=== PATIENT | female | born 2000 | race Hispanic/Latino ===

== ENCOUNTER → 2024-04-19 | Outpatient (CLI) | payer OTHER ==
[~2024-04-19] MED LIST: PROHANCE 279.3MG/ML 15ML VIAL As Ordered ONE
== END ==
LOC: M RAD 15:57
PROVIDERS: ATTEND Family Medicine
DX: M79.661 Pain in right lower leg (principal)
CPT/HCPCS: A9576; C8914

== ENCOUNTER 2024-08-15 20:45 | Outpatient (CLI) | payer OTHER ==
[~2024-08-15] VITALS: Ht 157.5 cm; Wt 79.1 kg
[2024-08-15 20:58] VITALS: BP 129/80; O2SAT 98
[2024-08-15] MEDS ORDERED: HOME MED LIST COMPLETE! XX SCH (21:00)
[2024-08-15] MEDS ORDERED: PROB250C PO (21:08)
[2024-08-15] MEDS ORDERED: UNIS25TA3 PO (21:08)
[2024-08-15] MEDS ORDERED: PRENTAB9 PO (21:08)
[2024-08-15] MEDS: LR 1,000 ML IV ONE (21:39)
[2024-08-15] MEDS: ONDANSETRON 4MG 2ML VIAL IV ONE (21:39)
[2024-08-15 21:52] LABS: HEMATOCRIT 33.3 % (36.0-47.0); HEMOGLOBIN 11.2 g/dl (12.0-15.5); MEAN CORPUSCULAR HEMOGLOBIN 28.4 pg (27.0-33.0); MEAN CORPUSCULAR HGB CONC 33.6 g/dl (32.0-36.5); MEAN CORPUSCULAR VOLUME 84.3 fl (80.0-96.0); PLATELET COUNT, AUTOMATED 293 10^3/uL (150-450); RED BLOOD COUNT 3.95 10^6/uL (4.00-5.40)
[2024-08-15 22:13] VITALS: BP 116/65; O2SAT 100
[2024-08-15 22:16] LABS: LIPASE 31 U/L (12-53)
[2024-08-15 22:17] LABS: AMYLASE 105 U/L (30-118)
[2024-08-15 22:18] LABS: ALBUMIN 2.9 G/DL (3.2-5.2); ALKALINE PHOSPHATASE 69 U/L (35-104); ALT/SGPT 12 U/L (7.0-40); AST/SGOT 31 U/L (<34); BILIRUBIN,TOTAL 0.5 MG/DL (0.3-1.2); BLOOD UREA NITROGEN 7 MG/DL (9-23); CALCIUM LEVEL 8.7 MG/DL (8.5-10.1); CARBON DIOXIDE LEVEL 18 MMOL/L (20-31); CHLORIDE LEVEL 106 MMOL/L (98-107); CREATININE FOR GFR 0.44 MG/DL (0.55-1.30); GLOMERULAR FILTRATION RATE > 60.0 (>60); GLUCOSE, FASTING 90 MG/DL (60-100); POTASSIUM SERUM 3.7 MMOL/L (3.5-5.1); SODIUM LEVEL 136 MMOL/L (136-145); TOTAL PROTEIN 6.4 G/DL (5.7-8.2)
[2024-08-15] MEDS ORDERED: ONDA-282 PO (22:40)
== END 2024-08-15 20:50 | disposition home or self-care (01) ==
LOC: M LDO 20:45
PROVIDERS: ATTEND Obstetrics & Gynecology
DX: O21.8 Other vomiting complicating pregnancy (principal); O26.892 Other specified pregnancy related conditions, second trimester; R19.7 Diarrhea, unspecified; Z3A.20 20 weeks gestation of pregnancy
CPT/HCPCS: 59025; 80053; 82150; 83690; 85027; 96374; G0463; J2405

== ENCOUNTER 2024-08-17 09:33 | Outpatient (CLI) | payer OTHER ==
[~2024-08-17] VITALS: Ht 157.5 cm; Wt 79.7 kg
[~2024-08-17 09:33] MED LIST changes: +ONDA-282 PO; +PRENTAB9 PO; +PROB250C PO; -PROHANCE 279.3MG/ML 15ML VIAL As Ordered ONE; +UNIS25TA3 PO
[2024-08-17] MEDS ORDERED: ACET-907 PO (09:47)
[2024-08-17 09:50] VITALS: BP 107/62
[2024-08-17] MEDS ORDERED: HOME MED LIST COMPLETE! XX SCH (09:50)
[2024-08-17] MEDS ORDERED: LR 1,000 ML IV SCH (11:25)
[2024-08-17] MEDS: ONDANSETRON 4MG 2ML VIAL IV ONE (12:22)
[2024-08-17] MEDS: LACTATED RINGER'S 1000 ML IV STA (12:22)
[2024-08-17 14:05] LABS: APPEARANCE, URINE CLEAR (CLEAR); BACTERIA, URINE AUTO 2+ (NEGATIVE); BILIRUBIN, URINE AUTO NEGATIVE (NEGATIVE); BLOOD, URINE BLOOD NEGATIVE (NEGATIVE); COLOR, URINE YELLOW (YELLOW); GLUCOSE, URINE (UA) AUTO NEGATIVE (NEGATIVE); KETONE, URINE AUTO 2+ mg/dL (NEGATIVE); LEUKOCYTE ESTERASE, URINE AUTO NEGATIVE (NEGATIVE); MUCUS, URINE SMALL (NEGATIVE); NITRITE, URINE AUTO NEGATIVE (NEGATIVE); PROTEIN, URINE AUTO NEGATIVE (NEGATIVE); RBC, URINE AUTO 2 /HPF (0-3); SPECIFIC GRAVITY URINE AUTO 1.009 (1.002-1.035); SQUAMOUS EPITHELIAL CELL UR AU 0 /HPF (0-6); WBC, URINE AUTO 2 /HPF (0-3)
[2024-08-17] MEDS ORDERED: PROM25TA12 PO (15:21)
[2024-08-17] MEDS: PROMETHAZINE 25 MG TAB PO ONE (15:32)
== END 2024-08-17 15:30 | disposition home or self-care (01) ==
LOC: M LDO 09:33
PROVIDERS: ATTEND Obstetrics & Gynecology
DX: O21.8 Other vomiting complicating pregnancy (principal); O26.892 Other specified pregnancy related conditions, second trimester; R19.7 Diarrhea, unspecified; Z3A.20 20 weeks gestation of pregnancy
CPT/HCPCS: 81001; 96374; G0463; J2405

== ENCOUNTER 2024-12-21 22:51 | Outpatient (CLI) | payer OTHER ==
[~2024-12-21] VITALS: Ht 157.5 cm; Wt 85.6 kg
[~2024-12-21 22:51] MED LIST changes: +ACET-907 PO; +PROM25TA12 PO
[2024-12-21] MEDS ORDERED: HOME MED LIST COMPLETE! XX SCH (23:05)
[2024-12-21 23:12] VITALS: BP 142/67
== END 2024-12-22 00:01 | disposition home or self-care (01) ==
LOC: M LDO 22:51
PROVIDERS: ATTEND Advanced Practice Midwife
DX: O47.1 False labor at or after 37 completed weeks of gestation (principal); Z3A.38 38 weeks gestation of pregnancy
CPT/HCPCS: 59025; G0463

== ENCOUNTER 2024-12-25 12:48 | Inpatient (IN) | payer OTHER ==
[~2024-12-25] VITALS: Ht 157.5 cm; Wt 85.6 kg
[2024-12-25] VITALS (9 sets, daily range): BP systolic 131–155; BP diastolic 81–92
[2024-12-25] MEDS ORDERED: CARBOPROST TROMETHAMINE 250 MCG/ML AMP IM PRN (12:55)
[2024-12-25] MEDS ORDERED: TRANEXAMIC ACID INJection 1,000 MG in NS 100 ML IV PRN (12:55)
[2024-12-25] MEDS ORDERED: METHYLERGONOVINE MALEATE 0.2MG/ML 1ML VIAL IM PRN (12:55)
[2024-12-25] MEDS ORDERED: OXYTOCIN DRIP 30 UNITS in IV 1 EA IV PRN (12:55)
[2024-12-25] MEDS ORDERED: LIDOCAINE 1% MDV 20ML VIAL INFIL PRN (12:55)
[2024-12-25] MEDS ORDERED: HOME MED LIST COMPLETE! XX SCH (13:15)
[2024-12-25 13:52] LABS: HEMOGLOBIN 11.2 g/dl (12.0-15.5); MEAN CORPUSCULAR HEMOGLOBIN 26.6 pg (27.0-33.0); MEAN CORPUSCULAR HGB CONC 32.9 g/dl (32.0-36.5); MEAN CORPUSCULAR VOLUME 80.8 fl (80.0-96.0); PLATELET COUNT, AUTOMATED 276 10^3/uL (150-450); RED BLOOD COUNT 4.21 10^6/uL (4.00-5.40); WHITE BLOOD COUNT 10.7 10^3/uL (4.0-10.0)
[2024-12-25] MEDS: miSOPROStol 50MCG 1/2 TABLET SL PRN (14:39)
[2024-12-25 14:53] LABS: HIV 1&2 SCREEN NEGATIVE (NEGATIVE)
[2024-12-25 15:01] LABS: HEPATITIS C VIRUS ABY INDEX 0.04 INDEX (<0.8)
[2024-12-25] MEDS: miSOPROStol 25MCG 1/4 TABLET SL ONE (18:48)
[2024-12-25] MEDS: LR 1,000 ML IV SCH (20:55)
[2024-12-25] MEDS: BUTORPHANOL 2 MG/ML 1ML VIAL IV ONE (23:06)
[2024-12-25] MEDS: PROMETHAZINE 25MG/ML 1ML VIAL IV ONE (23:06)
[2024-12-25] MEDS ORDERED: miSOPROStol 25MCG 1/4 TABLET PV ONE (23:35)
[2024-12-26] VITALS (54 sets, daily range): BP systolic 78–157; BP diastolic 43–104; TEMP 98.4; O2SAT 96–97
[2024-12-26] MEDS ORDERED: ONDANSETRON 4MG 2ML VIAL IV PRN (01:40)
[2024-12-26] MEDS ORDERED: EPIDURAL/PCA KEYS XX PRN (01:40)
[2024-12-26] MEDS ORDERED: diphenhydrAMINE 50MG/ML VIAL IV PRN (01:40)
[2024-12-26] MEDS ORDERED: NALOXONE INJ 0.4MG/1ML VIAL IV PRN (01:40)
[2024-12-26] MEDS: LACTATED RINGER'S 1000 ML IV STA (01:43)
[2024-12-26] MEDS: FENTANYL/ROPIVACAINE/NACL BAG 100 ML EPIDURAL SCH (01:50)
[2024-12-26] MEDS ORDERED: miSOPROStol 25MCG 1/4 TABLET SL ONE (02:00)
[2024-12-26] MEDS: OXYTOCIN DRIP 30 UNITS in IV 1 EA IV SCH ×2 (03:32→22:42)
[2024-12-26] MEDS: ePHEDrine SULFATE 25 MG/5 ML(5MG/ML) SYRINGE IVP PRN (04:01)
[2024-12-26] MEDS: LR 500 ML IV PRN (06:20)
[2024-12-26] MEDS: diphenhydrAMINE 50MG/ML VIAL IV ONE (15:57)
[2024-12-26] MEDS: BICITRA 30ML SOLN UDC PO ONE (18:22)
[2024-12-26] MEDS: ceFAZolin SODIUM 2 GM in DEXTROSE 5% (D5W) ADV/MINI-BAG 50 ML IV ONE (18:22)
[2024-12-26] MEDS: AZITHROMYCIN INJ 500 MG, VIAL MATE ADAPTER 1 EACH in NS 250 ML IV ONE (18:22)
[2024-12-26] MEDS ORDERED: OXYTOCIN 30UNITS IN 0.9% NaCl 500ML IV BAG As Ordered ONE (18:55)
[2024-12-26] MEDS ORDERED: METOCLOPRAMIDE INJ 10MG/2ML VIAL As Ordered ONE (18:57)
[2024-12-26] MEDS ORDERED: ONDANSETRON 4MG 2ML VIAL As Ordered ONE (18:57)
[2024-12-26] MEDS ORDERED: PHENYLephrine 500MCG 5ML (100MCG/ML) SYRINGE As Ordered ONE (18:59)
[2024-12-26] MEDS ORDERED: TRANEXAMIC ACID 100 MG/ML 10ML VIAL As Ordered ONE (19:01)
[2024-12-26] MEDS ORDERED: dexmedeTOMIDine (4MCG/ML)200MCG/50ML BTL (PRECEDEX) As Ordered ONE (19:03)
[2024-12-26] MEDS ORDERED: MORPHINE PRES-FREE INJ 10 MG/10 ML VIAL As Ordered ONE (19:12)
[2024-12-26] MEDS ORDERED: KETOROLAC 30 MG/ML 1ML VIAL As Ordered ONE (19:14)
[2024-12-26] MEDS ORDERED: SIMETHICONE 80MG CHEW TAB PO PRN (19:35)
[2024-12-26] MEDS ORDERED: ANUSOL HC CREAM 30GM TOP PRN (19:35)
[2024-12-26] MEDS ORDERED: METHYLERGONOVINE MALEATE 0.2 MG TAB PO PRN (19:35)
[2024-12-26] MEDS ORDERED: MOM 30ML SUSPENSION UDC PO PRN (19:35)
[2024-12-26] MEDS ORDERED: PROMETHAZINE 25 MG TAB PO PRN (19:35)
[2024-12-26] MEDS ORDERED: SENNA 8.6 MG TAB (SENOKOT) PO PRN (19:35)
[2024-12-26] MEDS ORDERED: METOCLOPRAMIDE INJ 10MG/2ML VIAL IV PRN (19:35)
[2024-12-26] MEDS ORDERED: CALCIUM CARBONATE 500 MG CHEW U/D PO PRN (19:35)
[2024-12-26] MEDS ORDERED: oxyCODONE 5MG TAB PO PRN (19:35)
[2024-12-26] MEDS: LR 1,000 ML IV SCH (21:32)
[2024-12-26] MEDS: ACETAMINOPHEN 500 MG TAB PO PRN (22:19)
[2024-12-27] VITALS: BP 141/86; O2SAT 98
[2024-12-27 02:00] VITALS: BP 103/57; O2SAT 100
[2024-12-27] MEDS: KETOROLAC 30 MG/ML 1ML VIAL IV SCH (02:34)
[2024-12-27 06:00] VITALS: BP 121/61; O2SAT 98
[2024-12-27] MEDS: ACETAMINOPHEN 325 MG TAB PO PRN (06:58)
[2024-12-27 07:01] LABS: HEMATOCRIT 26.9 % (36.0-47.0); MEAN CORPUSCULAR HEMOGLOBIN 26.8 pg (27.0-33.0); MEAN CORPUSCULAR HGB CONC 33.1 g/dl (32.0-36.5); PLATELET COUNT, AUTOMATED 199 10^3/uL (150-450); RED BLOOD COUNT 3.32 10^6/uL (4.00-5.40); WHITE BLOOD COUNT 14.1 10^3/uL (4.0-10.0)
[2024-12-27 07:41] LABS: HEMOGLOBIN 8.9 g/dl (12.0-15.5)
[2024-12-27] MEDS ORDERED: PRENATAL VITAMINS CHEWABLE TABLET PO SCH (09:00)
[2024-12-27] MEDS: MIRALAX *UNIT DOSE* 17GM PACKET PO SCH (09:18)
[2024-12-27] MEDS: FERROUS SULFATE 325MG TAB PO SCH (09:18)
[2024-12-27] MEDS: [UNRECOGNIZED DRUG - OTHER] PO SCH (10:13)
[2024-12-27 11:51] LABS: ALBUMIN 1.8 G/DL (3.2-5.2); ALKALINE PHOSPHATASE 93 U/L (35-104); ALT/SGPT < 9 U/L (7.0-40); AST/SGOT 31 U/L (<34); BILIRUBIN,TOTAL 0.4 MG/DL (0.3-1.2); BLOOD UREA NITROGEN 9 MG/DL (9-23); CARBON DIOXIDE LEVEL 25 MMOL/L (20-31); CHLORIDE LEVEL 107 MMOL/L (98-107); CREATININE FOR GFR 0.62 MG/DL (0.55-1.30); GLOMERULAR FILTRATION RATE > 60.0 (>60); GLUCOSE, FASTING 75 MG/DL (60-100); POTASSIUM SERUM 3.5 MMOL/L (3.5-5.1); SODIUM LEVEL 139 MMOL/L (136-145); TOTAL PROTEIN 4.6 G/DL (5.7-8.2)
[2024-12-27 14:00] VITALS: BP 116/75; O2SAT 98
[2024-12-27 18:00] VITALS: BP 134/80
[2024-12-27] MEDS: IBUPROFEN 800 MG TAB PO SCH (21:35)
[2024-12-27 22:00] VITALS: BP 137/86; O2SAT 100
[2024-12-28] MEDS: oxyCODONE 5MG TAB PO PRN (01:30)
[2024-12-28 02:00] VITALS: BP 134/78; O2SAT 100
[2024-12-28 06:00] VITALS: BP 116/70; O2SAT 100
[2024-12-28 10:00] VITALS: BP 142/77; O2SAT 99
[2024-12-28 17:54] VITALS: BP 128/86; O2SAT 100
== END 2024-12-28 18:00 | disposition home or self-care (01) | DRG 773 ==
LOC: M LDI 12:48 → M OBS 12-26 21:11
PROVIDERS: ADMIT Advanced Practice Midwife; ATTEND General Practice
PROC: 3E0P7GC Introduction of Other Therapeutic Substance into Female Reproductive, Via Natural or Artificial Opening (ICD-10-PCS; 2024-12-25)
PROC: 10D00Z1 Extraction of Products of Conception, Low, Open Approach (ICD-10-PCS; principal; 2024-12-26 17:58)
DX: O13.4 Gestational [pregnancy-induced] hypertension without significant proteinuria, complicating childbirth (principal); Z3A.39 39 weeks gestation of pregnancy; Z37.0 Single live birth